=== PATIENT | female | born 1960 | race Caucasian/White ===

== ENCOUNTER 2023-05-27 00:40 | Day surgery (SDC) | payer OTHER, SELFPAY ==
[2023-04-29 15:43] VITALS: BMI 27.7
--- NOTE | 2023-05-23 13:00 | SUR.PREOP ---
Patient called regarding upcoming procedure. Message left on the pt's voicemail regarding appointment times.
--- NOTE | 2023-05-26 16:11 | PM.HPGS ---
History of Present Illness History of Present Illness Consent: Risks, benefits, and alternatives have been discussed and questions answered. Patient agrees to proceed with procedure. Chief complaint: Family history colon cancer Narrative: Sultana Barton is a 62 year old female referred for colon cancer screening. There is a family history of colon cancer. Both of her parents had colon cancer, as well as her brother. He has also had polyps removed in the past. Review of Systems Review of Systems: All systems reviewed & are unremarkable except as noted in HPI and below PMFSH Past Medical History Medical History Anxiety Arthritis GERD (gastroesophageal reflux disease) Surgical History Surgical History H/O left knee surgery H/O right knee surgery H/O shoulder surgery H/O tubal ligation History of cholecystectomy S/P spinal surgery Family History Family History Father Carcinoma of colon Mother Carcinoma of colon Sibling Malignant neoplasm of prostate Social History Social History Smoking packs per day: 0.5 Smoking cigarettes per day: 10.0 Years smoked: 15 Smoking pack-years: 7.50 Smoking status: Former smoker Tobacco type: cigarettes Alcohol intake: never Substance use: never Substance use type: does not use Do You Feel Safe in your Home?: Yes Lack of Transportation: No Lack of Food: Never True Current Housing: I Have Housing Concerned About Future Housing: No Difficulty Paying Gas/Electric Bills: YES Difficulty Paying for Meds: No Currently Unemployed: YES Education: High School Diploma/GED Difficulty w/ Childcare or Family Care: No Living arrangements: alone Spiritual care concerns: No Meds Home Medications and Allergies Home Medications Medication Instructions Recorded Confirmed Type alprazolam 0.5 mg tablet 0.5 mg PO PRN PRN Anxiety 04/29/23 04/29/23 History desvenlafaxine succinate 100 mg 100 mg PO DAILY 04/29/23 04/29/23 History tablet,extended release 24 hr omeprazole 20 mg capsule,delayed 20 mg PO DAILY 04/29/23 04/29/23 History release propranolol 40 mg tablet 40 mg PO DAILY 04/29/23 04/29/23 History trazodone 150 mg tablet 150 mg PO DAILY 04/29/23 04/29/23 History Allergies Allergy/AdvReac Type Severity Reaction Status Date / Time No Known Allergies Allergy Verified 05/21/23 08:28 Exam Resp: Auscultation: clear to auscultation bilaterally Cardio: Rate: regular rate Rhythm: regular rhythm GI: GI Palp: Yes Soft to palpation and No Tenderness to palpation present (GI) Assessment and Plan Assessment and plan (1) Colon cancer screening: Code(s): Z12.11 - Encounter for screening for malignant neoplasm of colon Status: Acute Assessment and Plan: Colonoscopy with possible biopsy or polypectomy or cautery or injection of substances.
[2023-05-27 09:24] VITALS: BP 145/85; PULSE 74; RESP 18; TEMP 36.3; O2SAT 99; BMI 27.1
[2023-05-27] MEDS: LACTATED RINGERS 1,000 ML 150 ML IV CONT (09:51)
--- NOTE | 2023-05-27 10:30 | WPDANESEPPF ---
Anes - Initial Pre Proc Eval Procedure: Operation Date: 05/27/23 10:30 Proposed Procedures p Colonoscopy - Vimal Frost MD Date/Time: 05/27/23 10:30 Surgeon: Vimal Frost MD Pre Op Diagnosis: Family history colon cancer Patient Data Age: 62 Gender: F Height: 1.7 m Weight: 78.5 kg Last Vital Signs Temp 97.4 F L 05/27/23 09:24 Pulse 74 05/27/23 09:24 Resp 18 05/27/23 09:24 BP 145/85 H 05/27/23 09:24 Pulse Ox 99 05/27/23 09:24 O2 Del Method Room Air 05/27/23 09:24 Allergies Allergy/AdvReac Type Severity Reaction Status Date / Time No Known Allergies Allergy Verified 05/21/23 08:28 Home Medications Medication Instructions Recorded Confirmed Type alprazolam 0.5 mg tablet 0.5 mg PO PRN PRN Anxiety 04/29/23 04/29/23 History desvenlafaxine succinate 100 mg 100 mg PO DAILY 04/29/23 04/29/23 History tablet,extended release 24 hr omeprazole 20 mg capsule,delayed 20 mg PO DAILY 04/29/23 04/29/23 History release propranolol 40 mg tablet 40 mg PO DAILY 04/29/23 04/29/23 History trazodone 150 mg tablet 150 mg PO DAILY 04/29/23 04/29/23 History Patient hx anesthesia problems: none Family hx anesthesia problems: none Results Review: All pre-operative results and documents have been reviewed as part of the pre-operative evaluation. [facility] Past Medical History Medical History Anxiety Arthritis GERD (gastroesophageal reflux disease) Surgical History Surgical History H/O left knee surgery H/O right knee surgery H/O shoulder surgery H/O tubal ligation History of cholecystectomy S/P spinal surgery Family History Family History Father Carcinoma of colon Mother Carcinoma of colon Sibling Malignant neoplasm of prostate Social History Social History Smoking packs per day: 0.5 Smoking cigarettes per day: 10.0 Years smoked: 15 Smoking pack-years: 7.50 Smoking status: Former smoker Tobacco type: cigarettes Alcohol intake: never Substance use: never Substance use type: does not use Do You Feel Safe in your Home?: Yes Lack of Transportation: No Lack of Food: Never True Current Housing: I Have Housing Concerned About Future Housing: No Difficulty Paying Gas/Electric Bills: YES Difficulty Paying for Meds: No Currently Unemployed: YES Education: High School Diploma/GED Difficulty w/ Childcare or Family Care: No Living arrangements: alone Spiritual care concerns: No Anes - Eval Final PreProcedure Day of Procedure 05/27/23 10:30 Patient weight: normal Heart: regular rate and rhythm Lungs: clear to auscultation Airway: Mallampati scale class II Neurological: alert and oriented Last oral intake: >/= 8 hours ASA classification: III Emergent: no Anesthetic plan: proceed Anesthesia type and monitoring: general GIVS and standard monitoring Results Review: All pre-operative results and documents have been reviewed as part of the pre-operative evaluation. Informed Consent: The patient's anesthetic plan and its attendant risks and benefits were discussed with the patient/family/POA. Questions were solicited and answers provided to the satisfaction of the patient/family/POA.
[2023-05-27 10:54] VITALS: BP 114/74; PULSE 69; RESP 18; O2SAT 100
[2023-05-27 11:03] VITALS: BP 120/73; PULSE 65; RESP 18; O2SAT 99
[2023-05-27 11:13] VITALS: BP 120/82; PULSE 72; RESP 18; O2SAT 97
== END 2023-05-27 11:22 | disposition home or self-care (01) ==
PROVIDERS: PCP Nurse Practitioner; Visit Provider Internal Medicine Gastroenterology
PROC: 0DJD8ZZ Inspection of Lower Intestinal Tract, Via Natural or Artificial Opening Endoscopic (ICD-10-PCS; CPT 45378; principal; 2023-05-27 10:30)
DX: Z12.11 Encounter for screening for malignant neoplasm of colon (principal); K64.8 Other hemorrhoids; Z80.0 Family history of malignant neoplasm of digestive organs; K21.9 Gastro-esophageal reflux disease without esophagitis; F41.9 Anxiety disorder, unspecified; Z87.891 Personal history of nicotine dependence; Z83.719 Family history of colon polyps, unspecified
CPT/HCPCS: G0105; J2704; J7120

== ENCOUNTER 2024-02-23 13:51 | Outpatient (CLI) | payer OTHER, SELFPAY ==
--- NOTE | ~2024-02-23 | MR_ITS ---
MRI of the left shoulder Technique: Axial proton-density fat-sat images, coronal proton density fat-sat and T2 fat-sat images, and sagittal T1-weighted and T2 fat-sat images were acquired. Clinical History: Pain Findings: There is uger-uk-[id number] AC joint degenerative change, with small subacromial spur present . Coracoclavicular, coracoacromial, and coracohumeral ligaments are intact. There is a probable 1.9 x 1.6 cm area of full-thickness tearing involving the distal rotator cuff ins ertion involving the posterior portion of the supraspinatus tendon, and anterior portion of the infra spinatus tendon. Subscapularis tendon is intact, with minimal tendinosis. Tendon of long head of the biceps is intact. No labral tear evident. Inferior glenohumeral ligament is intact. No degenerative change or effusion of the glenohumeral join t. There is minimal fluid in the subacromial/subdeltoid bursa. No muscle atrophy or edema. Impression: Probable 1.9 x 1.6 cm area of full-thickness tearing at the distal rotator cuff insertion involving t he posterior supraspinatus tendon and anterior infraspinatus tendon. Dsaf-bg-hwwqhrrd AC joint degenerative change. Reviewed, dictated and finalized at location . Impression: Probable 1.9 x 1.6 cm area of full-thickness tearing at the distal rotator cuff insertion involving the posterior supraspinatus tendon and anterior infraspina tus tendon. Ruxq-aj-bplyupuc AC joint degenerative change.
== END 2024-02-23 13:52 | disposition home or self-care (01) ==
LOC: MICIMG 13:52
PROVIDERS: PCP Nurse Practitioner Family; Visit Provider Nurse Practitioner Family
DX: M19.012 Primary osteoarthritis, left shoulder (principal)
CPT/HCPCS: 73221

== ENCOUNTER 2024-03-16 10:20 | Outpatient (CLI) | payer OTHER, SELFPAY ==
--- NOTE | 2024-03-16 10:27 | ECG_ITS ---
Test Date: 2024-03-16 11:04:10 Measurements Intervals [place] Rate: 70 P: 54 TX: 176 QRS: -35 QRSD: 108 T: 33 QT: 369 QTc: 401 Interpretive Statements SINUS RHYTHM LEFT AXIS DEVIATION PATTERN CONSISTENT WITH PULMONARY DISEASE BASELINE ARTIFACT- I, III, AVR, AVL, AVF BORDERLINE ECG No previous ECG available for comparison Electronically Signed On 03-16-2024 11:05:48 [employer] by Roger Calzada D.O.
== END 2024-03-16 10:21 | disposition home or self-care (01) ==
LOC: ANHSURGERY 10:24
PROVIDERS: PCP Nurse Practitioner; Visit Provider Orthopaedic Surgery
DX: Z01.818 Encounter for other preprocedural examination (principal); I49.9 Cardiac arrhythmia, unspecified; I44.4 Left anterior fascicular block
CPT/HCPCS: 93005

== ENCOUNTER 2024-03-19 01:05 | Day surgery (SDC) | payer OTHER, SELFPAY ==
--- NOTE | 2024-03-12 12:06 | PC.NURSE ---
Report to the Outpatient Waiting Room, entrance under the green pavilion located off [facility], at time 6 AM on date _03/19/24 . Planned Procedure Time: 7:30 AM .? Time changes happen often and if your time is changed the preop area will call you the afternoon before. - You and your visitor will be asked to self-screen and do not enter if you have any COVID symptoms. Please call surgeon if you need to reschedule. - A mask is optional within the hospital at this time. Patients may have clear liquids (water, carbonated beverages, clear teas, apple juice) until 3 hours prior to surgery ( 4:30 AM)with a maximum of 20 ounces. - No food from midnight until time of surgery and no smoking. This includes no chewing gum, candy or mints. - Infants may have breast milk until 4 hours before surgery, formula 6 hours prior to surgery. - Children will be allowed to drink immediately following surgery.? If applicable, please bring a bottle or sippy cup to assist with drinking. Juice, water, soda, and popsicles are readily available.? For infants on formula, please bring formula the day of surgery.? Pacifiers are allowed. Take only the following medications with a SIP of water on the morning of surgery: __ALPRAZOLAM IF NEEDED,DESVENLAFAXINE,LAMOTRIGINE,PROPRANOLOL DO NOT STOP ANY OF YOUR OTHER PRESCRIPTION MEDICATIONS PRIOR TO SURGERY EXCEPT THE FOLLOWING Medications to discontinue per physician _HOLD ALL VITAMINS 3 DAYS PRE OP. Date to take last dose__03/15/24 Please no make-up, nail colombian, hairspray, perfume, deodorant, or body powder the day of surgery.? No jewelry (including any body piercings) or valuables the day of surgery, leave them at home.? Please take a shower or bath the night before, or the morning of, surgery with an antibacterial soap.? Wear comfortable, loose fitting clothing.? Children are encouraged to wear pajamas. - Jewelry must be removed prior to entering the operating room.? Rings and piercings that are not removed may be cut off. - The hospital will not accept responsibility for valuables.? - Please leave all valuables, including medications, at home the day of surgery. If you are going home after surgery, a licensed emergency vehicle driver must drive you home.? - NO public transportation without another adult if you receive anesthesia. - We recommend that an adult stay with you for 24 hours following discharge. - We also recommend that you do not drive, make important decision, drink alcoholic beverages, or take any drugs that were not prescribed by your health care provider for at least 24 hours after your discharge time. For Pediatric surgeries, we recommend two adults accompany the child home. Follow any additional instructions given to you from your surgeon. Telephone instructions given to __PATIENT and asked if any additional questions and then verbalized understanding. Patient advised to call surgeon office or pre surgery nurse liaison [phone] if any additional questions.
[2024-03-12 12:19] VITALS: BMI 29.5
[2024-03-19] VITALS (9 sets, daily range): BP systolic 102–118; BP diastolic 63–85; PULSE 76–85; RESP 14–20; TEMP 36.4–36.8; O2SAT 92–99
[2024-03-19] MEDS: CELECOXIB 200 MG CAPSULE PO (07:00)
[2024-03-19] MEDS: ACETAMINOPHEN 500 MG TABLET 1000 MG PO (07:00)
[2024-03-19] MEDS: LACTATED RINGERS 1,000 ML 30 ML IV CONT ×2 (07:00→09:10)
--- NOTE | 2024-03-19 07:03 | P.PNAN_ITS ---
Anes - Initial Pre Proc Eval Procedure: Operation Date: 03/19/24 07:30 Proposed Procedures p Left Rotator Cuff Repair - Wilberto Ervin MD Date/Time: 03/19/24 07:03 Surgeon: Wilberto Ervin MD Pre Op Diagnosis: left shoulder rotator cuff tear Patient Data Age: 63 Gender: F Height: 1.68 m Weight: 83.05 kg Allergies Allergy/AdvReac Type Severity Reaction Status Date / Time No Known Allergies Allergy Verified 03/12/24 11:59 Home Medications Medication Instructions Recorded Confirmed Type alprazolam 0.5 mg tablet 0.5 mg PO PRN PRN Anxiety 04/29/23 03/12/24 History desvenlafaxine succinate 100 mg 125 mg PO DAILY 04/29/23 03/12/24 History tablet,extended release 24 hr trazodone 150 mg tablet 200 mg PO HS 04/29/23 03/12/24 History chlorhexidine gluconate 4 % 1 applic topical DAILY #237 mL 03/08/24 03/12/24 Rx topical liquid (Hibiclens) clindamycin 1 %-benzoyl peroxide 5 1 applic topical DAILY #25 grams 03/08/24 03/12/24 Rx % topical gel ergocalciferol (vitamin D2) 1,250 1,250 mcg PO WEEKLY 03/12/24 03/12/24 History mcg (50,000 unit) capsule lamotrigine 150 mg tablet 150 mg PO QAM 03/12/24 03/12/24 History omeprazole 40 mg capsule,delayed 40 mg PO DAILY 03/12/24 03/12/24 History release propranolol 160 mg capsule,24 160 mg PO QAM 03/12/24 03/12/24 History hr,extended release Patient hx anesthesia problems: none Family hx anesthesia problems: none Results Review: All pre-operative results and documents have been reviewed as part of the pre- operative evaluation. [facility] Past Medical History Medical History Anxiety Arthritis GERD (gastroesophageal reflux disease) Left shoulder pain Rotator cuff tear Rotator cuff tendonitis Surgical History Surgical History H/O left knee surgery H/O right knee surgery H/O shoulder surgery H/O tubal ligation History of cholecystectomy S/P spinal surgery Family History Family History Father Carcinoma of colon Mother Carcinoma of colon Sibling Malignant neoplasm of prostate Unknown Depression Social History Social History Social History: caffeine use Smoking packs per day: 0.5 Smoking cigarettes per day: 10.0 Years smoked: 15 Smoking pack-years: 7.50 Smoking status: Former smoker Tobacco type: cigarettes Smoking end date: 04/28/10 Alcohol intake: never Substance use: never Substance use type: does not use Do You Feel Safe in your Home?: Yes Lack of Transportation: No Lack of Food: Never True Current Housing: I Have Housing Concerned About Future Housing: No Difficulty Paying Gas/Electric Bills: YES Difficulty Paying for Meds: No Currently Unemployed: YES Education: High School Diploma/GED Difficulty w/ Childcare or Family Care: No Living arrangements: with family Occupation/Education: occupation 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 ) Neurological: alert and oriented Last oral intake: >/= 8 hours ASA classification: II Emergent: no Anesthetic plan: proceed Anesthesia type and monitoring: general ETT and standard monitoring Results Review: All pre-operative results and documents have been reviewed as part of the pre- operative evaluation. Hx of anxiety, OA, GERD, ex smoker, quit 2011. EKG w NSR. Overall good functional status, no cp or sob w walking 1-2 fos, 1/2 mile, no cp or sob. Discussed all R/B/A of GA and ISB w pt and her daughter Chaya in preop room 8 to the best of my ability. They agree to proceed. Informed Consent: The patient's anesthetic plan and its attendant risks and benefits were discussed with the patient/family/POA. Questions were solicited and answers provided to the satisfaction of the patient/family/POA.
--- NOTE | 2024-03-19 07:07 | WPDHPUPDATE1 ---
History and Physical Update Update Date/Time: 03/19/24 07:07 History and Physical has been reviewed, including an updated exam of the patient. There are NO changes in the patient's condition. Risks, benefits, and alternatives have been discussed and questions answered. Patient agrees to proceed with procedure.
--- NOTE | 2024-03-19 07:24 | WPDANESPNB ---
Anes - Peripheral Nerve Block Date/Time: 03/19/24 07:24 I have discussed with the patient/family/POA the placement of a peripheral nerve block for post-operative pain management, including associated risks, benefits, complications, and side effects. Alternative methods of post-operative analgesia were detailed. Questions were solicited and answers provided to the satisfaction of the patient/family/POA. Time-Out: A pre-procedural Time-Out was completed immediately before starting the procedure and confirmed: Patient Identification, Site, Procedure, Patient Position and the Availability of Requisite Equipment. Clinical Indications: Acute post-operative pain management requested by the operative surgeon. Nerve Block Insertion Note Anes-nerve block: interscalene left Patient position: supine Skin prep: chlorhexidine Needle: 22 gauge, stimulating, insulated echogenic needle. Needle length: 80 mm Technique: ultrasound Injectate: other (Bupiv 0.5% 15 mls. ) Observations: tolerated well Complications: none Procedure start time:: 71 Procedure end time::
[2024-03-19] MEDS: ceFAZolin 2 GM/D5W 50 ML 2 GM/50 ML BAG IVPB (07:45)
--- NOTE | 2024-03-19 09:14 | W.PM.PROC2 ---
Procedure Note - Detailed Date of Procedure 03/19/24 Pre-op Diagnosis left shoulder rotator cuff tear Post-op Diagnosis Same Procedure Performed REPAIR LEFT ROTATOR CUFF Surgeon Wilberto Ervin MD Anesthesia General Description of Procedure THE PATIENT WAS TAKEN TO THE OPERATING ROOM AND THEN INTUBATED AND PLACED IN THE BEACH CHAIR POSITION. THE LEFT UPPER EXTREMITY WAS PREPPED AND DRAPED IN THE NORMAL STERILE FASHION. AN INCISION WAS MADE IN BETWEEN THE FELIZ-LATERAL ACROMION AND THE AC JOINT. THE FASCIA WAS IDENTIFIED. NEXT A MINI OPEN INCISION WAS MADE THROUGH THE DELTOID MUSCLE EXPOSING THE SUBACROMIAL SPACE. A LIMITED ACROMIOPLASTY WAS PREFORMED. THE ROTATOR CUFF WAS IDENTIFIED. THERE WAS A FULL THICKNESS TEAR. IT MEASURED APPROXIMATELY 2 CM X 2 CM. THE GREATER TUBEROSITY WAS DEBRIDED TO BLEEDING BONE. 2 ARTHREX 5.5 SUTURE ANCHORS WERE PLACED IN TO GOOD BONE AND HAD VERY GOOD BITES. TRACEY-AB TYPE REPAIRS WERE DONE TO THE ROTATOR CUFF AND THERE WAS GOOD APPROXIMATION TO THE GREATER TUBEROSITY. THE REPAIR WAS EXCELLENT. THERE WAS NO IMPINGEMENT ON THE REPAIR FROM THE ACROMION WITH RANGE OF MOTION. THE WOUND WAS IRRIGATED WITH COPIOUS AMOUNTS OF ANTIBIOTIC SOLUTION. THE DELTOID MUSCLE WAS REPAIRED WITH #2 FIBER WIRE AND 0 VICRYL SUTURE. THE SUBCUTANEOUS LAYER WAS APPROXIMATED WITH 2-0 VICRYL. THE SKIN WAS APPROXIMATED WITH 3-0 QUIL AND DERMABOND. STERILE DRESSING WAS APPLIED. PATIENT WAS EXTUBATED. Estimated Blood Loss 20 Complications No immediate complications Condition Stable Disposition PACU
== END 2024-03-19 11:12 | disposition home or self-care (01) ==
PROVIDERS: PCP Nurse Practitioner; Visit Provider Orthopaedic Surgery
PROC: (CPT 23420; principal; 2024-03-19 07:30)
DX: M75.102 Unspecified rotator cuff tear or rupture of left shoulder, not specified as traumatic (principal); G89.18 Other acute postprocedural pain; K21.9 Gastro-esophageal reflux disease without esophagitis; F41.9 Anxiety disorder, unspecified; Z87.891 Personal history of nicotine dependence
CPT/HCPCS: 23412; 64415; 93005; A9270; C1713; J0690; J1100; J2003; J2250; J2270; J2405; J2704; J3010; J7120

== ENCOUNTER 2025-02-08 00:49 | Day surgery (SDC) | payer MEDICARE, MEDICAID, SELFPAY ==
[2025-02-03 11:59] VITALS: BMI 31.0
--- NOTE | 2025-02-03 12:00 | SUR.PREOP ---
[facility] has started construction of its new state of the art ER which will open Spring 2026. With this, we anticipate parking may be a challenge for some our surgical patients and families. Parking spaces are limited but are available for all Surgical, obstetrics, and ER patients sharing this lot. If you arrive and find you are having a hard time finding a parking space, please note that we understand the challenges, please drive around the hospital and park near Hospital Entrance 1. When you enter this entrance, you can ask a volunteer to direct or take you back to the surgical waiting area to check in. We appreciate everyone?s understanding of these expected challenges while we build for your future. Report to the Outpatient Waiting Room, entrance under the green pavilion located off [address], at time _11am on date _02/08/25 . Planned Procedure Time: __1pm____.? Time changes happen often and if your time is changed the preop area will call you the afternoon before. - You and your visitor will be asked to self-screen and do not enter if you have any COVID symptoms. Please call surgeon if you need to reschedule. - A mask is optional within the hospital at this time. Patients may have clear liquids (water, carbonated beverages, clear teas, apple juice) until 3 hours prior to surgery with a maximum of 20 ounces. - No food from midnight until time of surgery and no smoking, or chewing tobacco (or any form of nicotine). No chewing gum, candy or mints. Take only the following medications with a SIP of water on the morning of surgery: _desvenlafaxine, propranolol, (lorazepam if needed). DO NOT STOP ANY OF YOUR OTHER PRESCRIPTION MEDICATIONS PRIOR TO SURGERY EXCEPT THE FOLLOWING Hold all vitamins and supplements for 3 days per anesthesiologist. Medications to discontinue per physician __None Date to take last dose__n/a Please no make-up, nail romansh, hairspray, perfume, deodorant, or body powder the day of surgery.? No jewelry (including any body piercings) or valuables the day of surgery, leave them at home.? Please take a shower or bath the night before, or the morning of, surgery with an antibacterial soap.? Wear comfortable, loose fitting clothing.? Children are encouraged to wear pajamas. - Jewelry must be removed prior to entering the operating room.? Rings and piercings that are not removed may be cut off. - The hospital will not accept responsibility for valuables.? - Please leave all valuables, including medications, at home the day of surgery. If you are going home after surgery, a licensed wood pile driver operator must drive you home.? - NO public transportation without another adult if you receive anesthesia. - We recommend that an adult stay with you for 24 hours following discharge. - We also recommend that you do not drive, make important decision, drink alcoholic beverages, or take any drugs that were not prescribed by your health care provider for at least 24 hours after your discharge time. Follow any additional instructions given to you from your surgeon. Telephone instructions given to __Sultana____and asked if any additional questions and then verbalized understanding. Patient advised to call surgeon office or pre surgery nurse liaison [phone] if any additional questions.
[2025-02-08 11:05] VITALS: BP 151/97; PULSE 83; RESP 18; TEMP 36.7; O2SAT 97
[2025-02-08] MEDS: ACETAMINOPHEN 500 MG TABLET 1000 MG PO (11:23)
[2025-02-08] MEDS: LACTATED RINGERS 1,000 ML 30 ML IV CONT (11:25)
--- NOTE | 2025-02-08 12:30 | WPDANESEPPF ---
Anes - Initial Pre Proc Eval Procedure: Operation Date: 02/08/25 13:00 Proposed Procedures p Loop Electrical Excision Procedure - Mika Tsang MD Date/Time: 02/08/25 12:30 Surgeon: Mika Tsang MD Pre Op Diagnosis: severe dysplasia, YAZMIN 3 Patient Data Age: 64 Gender: F Height: 1.68 m Weight: 86.7 kg Last Vital Signs Temp 36.7 C 02/08/25 11:05 Pulse 83 02/08/25 11:05 Resp 18 02/08/25 11:05 BP 151/97 H 02/08/25 11:05 Pulse Ox 97 02/08/25 11:05 O2 Del Method Room Air 02/08/25 11:05 Allergies Allergy/AdvReac Type Severity Reaction Status Date / Time No Known Allergies Allergy Verified 02/03/25 11:47 Home Medications ?Medication ?Instructions ?Recorded ?Confirmed ?Type desvenlafaxine succinate 100 mg 125 mg PO DAILY 04/29/23 02/08/25 History tablet,extended release 24 hr ergocalciferol (vitamin D2) 1,250 1,250 mcg PO WEEKLY 03/12/24 02/08/25 History mcg (50,000 unit) capsule omeprazole 40 mg capsule,delayed 40 mg PO DAILY 03/12/24 02/08/25 History release estradiol 4 mcg vaginal insert 4 mcg vaginal 2XW #8 inserts 06/24/24 02/03/25 Rx (Imvexxy Maintenance Pack) lorazepam 1 mg tablet (Ativan) 1 mg PO DAILY PRN anxiety 06/24/24 02/03/25 History propranolol 60 mg tablet 60 mg PO Q12H 06/24/24 02/08/25 History trazodone 300 mg tablet 450 mg PO QHS 12/09/24 02/08/25 History Patient hx anesthesia problems: none Family hx anesthesia problems: none Results Review: All pre-operative results and documents have been reviewed as part of the pre-operative evaluation. [facility] Past Medical History Medical History (Updated 02/08/25 @ 12:35 by Peter Finn DO) SVT (supraventricular tachycardia) Rotator cuff tear Rotator cuff tendonitis Left shoulder pain GERD (gastroesophageal reflux disease) Arthritis Anxiety Surgical History Surgical History S/P spinal surgery H/O tubal ligation History of cholecystectomy H/O shoulder surgery H/O right knee surgery H/O left knee surgery Family History Family History Father Carcinoma of colon Mother Carcinoma of colon Sibling Malignant neoplasm of prostate Unknown Depression Social History Social History Social History: caffeine use Smoking packs per day: 0.5 Smoking cigarettes per day: 10.0 Years smoked: 15 Smoking pack-years: 7.50 Smoking status: Former smoker Tobacco type: cigarettes Smoking end date: 04/28/10 Alcohol intake: never Substance use: never Substance use type: does not use Do You Feel Safe in your Home?: Yes Lack of Transportation: No Lack of Food: Never True Current Housing: I Have Housing Concerned About Future Housing: No Difficulty Paying Gas/Electric Bills: YES Difficulty Paying for Meds: No Currently Unemployed: YES Education: High School Diploma/GED Difficulty w/ Childcare or Family Care: No Living arrangements: with family Occupation/Education: occupation 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 Informed Consent: The patient's anesthetic plan and its attendant risks and benefits were discussed with the patient/family/POA. Questions were solicited and answers provided to the satisfaction of the patient/family/POA.
--- NOTE | 2025-02-08 12:38 | WPDHPUPDATE1 ---
History and Physical Update Update Date/Time: 02/08/25 12:38 History and Physical has been reviewed, including an updated exam of the patient. There are NO changes in the patient's condition. Risks, benefits, and alternatives have been discussed and questions answered. Patient agrees to proceed with procedure.
--- NOTE | 2025-02-08 12:56 | S_PTH ---
PATIENT: Sultana Barton LOC: [facility] U#:[id number] AGE/SX: 64/F ROOM: RE02/08/[address]: Mika Tsang MD : 1960 BED: DIS: 02/08/2025 SPEC #: [id number] RECD: 02/08/25 13:14 STATUS: MICHAEL REQ #: [id number] PERICO: 02/08/25 12:[address]: Mika Tsang DEPT: [facility] Surgical RECD BY: Keerthi Caicedo ENTERED: 02/08/25 13:15 SP TYPE: Surgical OTHR DR: UNKNOWN,DOCTOR Tissues: A - Leep/Cone B - Leep/Cone Procedures: Hematoxylin and Eosin Stain Gross and Microscopic Level 5 P16
--- NOTE | 2025-02-08 13:03 | W.PM.PROC2 ---
Procedure Note - Detailed Date of Procedure 02/08/25 Pre-op Diagnosis severe dysplasia, YAZMIN 3 Post-op Diagnosis Same Procedure Performed Loop electrosurgical excision procedure Surgeon Mika Tsang MD Anesthesia MAC and Local Indications CIN3 Findings No decrease uptake of Lugols noted. Description of Procedure The patient was taken to the OR where adequate IV sedation was administered. She was then prepped and draped in the usual sterile fashion and placed in the dorsal lithotomy position. A Graves speculum was placed in the vagina. Lugol?s solution was painted along the entire cervix and vaginal wall. No area of decresed uptake of lugols. The large loop electrode was used to remove the anterior or top portion of the cervix to include the transformation zone. The smallest loop electrode was used to obtain a deeper excision of the endocervix. The bed of the excised cervical tissue along the cervix was cauterized using the roller ball. Monsel's solution placed. Hemostasis was noted. All instruments were removed from vagina at this point. The patient tolerated the procedure well without complication and was taken to the recovery room in stable condition. Estimated Blood Loss 5 Drains No Packing No Pathology Yes (Leep ant and post and endocervical) Complications No immediate complications Condition Stable Disposition Same day [facility] Billing Surgery - Charge Forward: Surgery Billing
[2025-02-08 13:07] VITALS: BP 112/67; PULSE 72; RESP 14; O2SAT 98
[2025-02-08 13:35] VITALS: BP 125/77; PULSE 76
[2025-02-08] MEDS: LIDO 1%/EPINEPHRINE 1:100,000 20 ML VIAL 10 ML INFILTRATE (13:46)
[2025-02-08 14:05] VITALS: BP 134/75; PULSE 71
[2025-02-08] MEDS: oxyCODONE HCL (*CRX) 5 MG TAB IR PO (14:13)
[2025-02-08 14:35] VITALS: BP 154/84; PULSE 76
== END 2025-02-08 14:50 | disposition home or self-care (01) ==
PROVIDERS: Visit Provider Obstetrics & Gynecology
PROC: 0UBC7ZZ Excision of Cervix, Via Natural or Artificial Opening (ICD-10-PCS; CPT 57522; principal; 2025-02-08 13:00)
DX: D06.1 Carcinoma in situ of exocervix (principal); N88.8 Other specified noninflammatory disorders of cervix uteri; I47.10 Supraventricular tachycardia, unspecified; K21.9 Gastro-esophageal reflux disease without esophagitis; F41.9 Anxiety disorder, unspecified; M19.90 Unspecified osteoarthritis, unspecified site; E66.9 Obesity, unspecified; Z68.30 Body mass index [BMI] 30.0-30.9, adult; Z98.890 Other specified postprocedural states; Z98.1 Arthrodesis status; Z98.51 Tubal ligation status; Z90.49 Acquired absence of other specified parts of digestive tract; Z87.891 Personal history of nicotine dependence; Z80.0 Family history of malignant neoplasm of digestive organs; Z80.42 Family history of malignant neoplasm of prostate
CPT/HCPCS: 57522; 88307; 88342; A9270; J1100; J2003; J2004; J2250; J2405; J2704; J3010; J7120